=== PATIENT | male | born 1950 | race Asian ===

== ENCOUNTER 2019-04-27 19:39 | Inpatient (IN) ==
[2019-04-27] MEDS ORDERED: SODIUM CHLORIDE 0.9% 1,000 ML IV STA (19:54)
[2019-04-27 20:51] LABS: Basophils # 0.1 10*3/uL (0.0-0.2); Eosinophils % 0.3 % (0.00-10.9); Hematocrit 41.4 VOL% (42.0-52.0); Hemoglobin 13.6 GM/DL (14.0-18.0); Immature Granulocytes % 0.5 %; Immature Granulocytes Absolute 0.05 #; Lymphocytes % 11.2 % (21.2-54.2); Mean Corpuscular HGB Conc 32.9 GM/DL (32-36); Mean Corpuscular Volume 89.8 FL (87-102); Mean Platelet Volume 8.4 FL (9.6-12.0); Monocytes % 5.8 % (1.7-12.7); Neutrophils % 81.2 % (38.7-73.9); Platelet Count 348 T/CUMM (130-400); Red Blood Count 4.61 MC/CUMM (3.8-5.5); Red Cell Distribution Width 13.2 % (9.3-17.3); White Blood Count 9.1 T/CUMM (4-12)
[2019-04-27 21:20] LABS: Alanine Aminotransferase 11 U/L (16-61); Albumin 3.7 G/DL (3.4-5.0); Alkaline Phosphatase 120 U/L (45-117); Aspartate Amino Transferase 10 U/L (0-37); Blood Urea Nitrogen 20 MG/DL (7-18); Calcium 8.8 MG/DL (8.5-10.1); Estimated Glom Filtration Rate 99 ML/MIN; Glucose 113 MG/DL (74-106); Osmolality,Calculated 276.8 MOS/KG (273-304); Total Protein 6.9 G/DL (6.4-8.3)
[2019-04-27 22:07] LABS: Apearance,Urine Slightly Hazy (Clear); Bilirubin,Urine Negative (Negative); Blood, Urine Moderate mg/dL (Negative); Glucose,Urine (UA) Negative (Negative); Hyaline Casts,Urine 3 /LPF (0-3); Ketones,Urine 5 mg/dL (Negative); Mucus,Urine Few /LPF (Occasional); Nitrite,Urine Negative (Negative); Protein,Urine Negative; RBC,Urine 27 /HPF (0-4); Sperm,Urine Occasional /HPF (Negative); Squamous Epithelial Cell,Urine Occasional /HPF (0-10); Urine Color Yellow (Yellow); Urine Specific Gravity 1.019 (1.001-1.035); Urine Urobilinogen < 2.0 EU/DL (0.2-1.0); WBC,Urine 8 /HPF (0-6)
[2019-04-27 22:11] LABS: Barbiturates Screen,Urine Negative (Negative); Benzodiazepines Screen,Urine Negative (Negative); Cannabinoid Screen,Urine Positive (Negative); Opiate Screen,Urine Negative (Negative); Phencyclidine Screen,Urine Negative (Negative)
[2019-04-27] MEDS ORDERED: cefTRIAXone 1,000 MG in SODIUM CHLORIDE 0.9% 100 ML IV STA (22:41)
[2019-04-28] MEDS ORDERED: GLUCAGON 1 MG VIAL IM PRN (02:51)
[2019-04-28] MEDS ORDERED: ONDANSETRON 4 MG/2 ML VIAL IV PRN (02:51)
[2019-04-28] MEDS ORDERED: ACETAMINOPHEN 325 MG TABLET PO PRN (02:51)
[2019-04-28] MEDS ORDERED: DEXTROSE 50% 25 GM/50 ML VIAL IV PRN (02:51)
[2019-04-28] MEDS: SODIUM CHLORIDE 0.9% 1,000 ML IV SCH ×2 (03:49→17:35)
[2019-04-28 05:23] LABS: Basophils # 0.1 10*3/uL (0.0-0.2); Basophils % 1.5 % (0.0-0.8); Eosinophils # 0.3 10*3/uL (0.0-0.87); Eosinophils % 3.5 % (0.00-10.9); Hematocrit 37.1 VOL% (42.0-52.0); Hemoglobin 12.6 GM/DL (14.0-18.0); Immature Granulocytes % 0.1 %; Immature Granulocytes Absolute 0.01 #; Lymphocytes # 1.7 10*3/uL (1.4-4.0); Lymphocytes % 23.3 % (21.2-54.2); Monocytes % 11.1 % (1.7-12.7); Neutrophils % 60.5 % (38.7-73.9); Platelet Count 344 T/CUMM (130-400); Red Blood Count 4.17 MC/CUMM (3.8-5.5); Red Cell Distribution Width 13.2 % (9.3-17.3); White Blood Count 7.1 T/CUMM (4-12)
[2019-04-28 05:50] LABS: Calcium 8.6 MG/DL (8.5-10.1); Osmolality,Calculated 276.7 MOS/KG (273-304)
[2019-04-28 05:53] LABS: Ferritin 56.6 ng/ml (26-388)
[2019-04-28 06:44] LABS: Folate 20.3 NG/ML (5.4-24.0); Vitamin B12 386 PG/ML (211-911)
[2019-04-28 07:49] LABS: Sedimentation Rate-Westergren 50 MM/HR (0-20)
[2019-04-28] MEDS: INSULIN REGULAR 100 UNIT/ML SUBCUT SCH ×4 (08:43→21:10)
[2019-04-28] MEDS: ENOXAPARIN 40 MG/0.4 ML SYRINGE SUBCUT SCH (08:45)
[2019-04-28] MEDS: predniSONE 10 MG TABLET PO SCH ×2 (08:45→18:22)
[2019-04-28] MEDS: GABAPENTIN 600 MG TABLET PO SCH ×3 (08:45→21:11)
[2019-04-28] MEDS: TAMSULOSIN 0.4 MG CAPSULE PO SCH (08:49)
[2019-04-28 09:13] LABS: Hemoglobin A1 (Alkaline) 97.3 % (96.5-98.5); Hemoglobin A2 (Alkaline) 2.7 % (1.5-3.5)
[2019-04-28] MEDS: cefTRIAXone 1,000 MG in SYRINGE 1 EACH IV SCH (21:13)
[2019-04-29] MEDS: SODIUM CHLORIDE 0.9% 1,000 ML IV SCH ×2 (05:45→21:15)
[2019-04-29 06:13] LABS: Basophils # 0.1 10*3/uL (0.0-0.2); Basophils % 0.8 % (0.0-0.8); Eosinophils # 0.1 10*3/uL (0.0-0.87); Hematocrit 36.1 VOL% (42.0-52.0); Hemoglobin 11.8 GM/DL (14.0-18.0); Immature Granulocytes % 0.3 %; Immature Granulocytes Absolute 0.02 #; Lymphocytes % 15.5 % (21.2-54.2); Mean Corpuscular HGB Conc 32.7 GM/DL (32-36); Mean Corpuscular Volume 89.6 FL (87-102); Mean Platelet Volume 9.1 FL (9.6-12.0); Monocytes % 8.5 % (1.7-12.7); Neutrophils % 73.9 % (38.7-73.9); Platelet Count 331 T/CUMM (130-400); Red Blood Count 4.03 MC/CUMM (3.8-5.5); Red Cell Distribution Width 13.2 % (9.3-17.3); White Blood Count 6.1 T/CUMM (4-12)
[2019-04-29 06:44] LABS: Calcium 8.2 MG/DL (8.5-10.1); Osmolality,Calculated 280.1 MOS/KG (273-304)
[2019-04-29] MEDS: INSULIN REGULAR 100 UNIT/ML SUBCUT SCH ×4 (08:22→21:08)
[2019-04-29] MEDS: GABAPENTIN 600 MG TABLET PO SCH ×3 (08:51→21:07)
[2019-04-29] MEDS: ENOXAPARIN 40 MG/0.4 ML SYRINGE SUBCUT SCH (08:51)
[2019-04-29] MEDS: predniSONE 10 MG TABLET PO SCH ×2 (08:51→17:58)
[2019-04-29] MEDS: TAMSULOSIN 0.4 MG CAPSULE PO SCH (08:51)
[2019-04-29] MEDS: oxyCODONE/ACETAMINOPHEN 5-325 MG TABLET PO PRN (17:58)
[2019-04-29] MEDS: cefTRIAXone 1,000 MG in SYRINGE 1 EACH IV SCH (21:14)
[2019-04-30 05:42] LABS: Basophils # 0.1 10*3/uL (0.0-0.2); Basophils % 0.8 % (0.0-0.8); Eosinophils # 0.1 10*3/uL (0.0-0.87); Hemoglobin 11.8 GM/DL (14.0-18.0); Immature Granulocytes % 0.4 %; Immature Granulocytes Absolute 0.03 #; Lymphocytes # 1.6 10*3/uL (1.4-4.0); Lymphocytes % 22.5 % (21.2-54.2); Mean Corpuscular HGB Conc 32.8 GM/DL (32-36); Mean Corpuscular Volume 89.6 FL (87-102); Mean Platelet Volume 8.7 FL (9.6-12.0); Monocytes % 8.4 % (1.7-12.7); Neutrophils % 66.9 % (38.7-73.9); Platelet Count 326 T/CUMM (130-400); Red Blood Count 4.02 MC/CUMM (3.8-5.5); Red Cell Distribution Width 13.1 % (9.3-17.3); White Blood Count 7.2 T/CUMM (4-12)
[2019-04-30 05:46] LABS: Calcium 8.3 MG/DL (8.5-10.1); Osmolality,Calculated 281.1 MOS/KG (273-304)
[2019-04-30] MEDS: INSULIN REGULAR 100 UNIT/ML SUBCUT SCH ×3 (08:47→18:08)
[2019-04-30] MEDS: GABAPENTIN 600 MG TABLET PO SCH ×2 (09:05→15:52)
[2019-04-30] MEDS: TAMSULOSIN 0.4 MG CAPSULE PO SCH (09:05)
[2019-04-30] MEDS: ENOXAPARIN 40 MG/0.4 ML SYRINGE SUBCUT SCH (09:05)
[2019-04-30] MEDS: predniSONE 10 MG TABLET PO SCH ×2 (09:05→18:08)
[2019-04-30] MEDS: SODIUM CHLORIDE 0.9% 1,000 ML IV SCH (09:33)
[2019-04-30] MEDS: oxyCODONE/ACETAMINOPHEN 5-325 MG TABLET PO PRN (09:47)
[2019-04-30 16:42] VITALS: BP 120/86
== END 2019-04-30 17:58 | disposition home health service (06) | DRG 74 ==
LOC: N.ED 19:39 → N.EDINP 04-28 00:21 → N.4E 04-28 00:59
PROVIDERS: ADMIT Internal Medicine; ATTEND Internal Medicine

== ENCOUNTER 2020-07-25 11:57 | Inpatient (IN) ==
[2020-07-25] MEDS ORDERED: SODIUM CHLORIDE 0.9% 1,000 ML IV STA (12:56)
[2020-07-25] MEDS ORDERED: ONDANSETRON 4 MG/2 ML VIAL IV STA (12:56)
[2020-07-25 13:04] LABS: Basophils # 0.1 10*3/uL (0.0-0.2); Basophils % 1.2 % (0.0-0.8); Eosinophils # 0.2 10*3/uL (0.0-0.87); Eosinophils % 1.4 % (0.00-10.9); Hematocrit 42.3 VOL% (42.0-52.0); Hemoglobin 14.1 GM/DL (14.0-18.0); Immature Granulocytes % 0.7 %; Immature Granulocytes Absolute 0.08 #; Lymphocytes # 2.2 10*3/uL (1.4-4.0); Mean Corpuscular HGB Conc 33.3 GM/DL (32-36); Mean Corpuscular Volume 88.7 FL (87-102); Mean Platelet Volume 8.6 FL (9.6-12.0); Monocytes % 12.3 % (1.7-12.7); Neutrophils % 64.4 % (38.7-73.9); Platelet Count 407 T/CUMM (130-400); Red Blood Count 4.77 MC/CUMM (3.8-5.5); Red Cell Distribution Width 13.2 % (9.3-17.3)
[2020-07-25 13:27] LABS: Alanine Aminotransferase < 9 U/L (16-61); Albumin 3.6 G/DL (3.4-5.0); Alkaline Phosphatase 104 U/L (45-117); Aspartate Amino Transferase 10 U/L (0-37); Blood Urea Nitrogen 15 MG/DL (7-18); Calcium 9.6 MG/DL (8.5-10.1); Carbon Dioxide 16 MMOL/L (21-32); Estimated Glom Filtration Rate 107 ML/MIN; Glucose 83 MG/DL (74-106); Osmolality,Calculated 267.2 MOS/KG (273-304); Potassium 3.4 MMOL/L (3.5-5.1); Sodium 134 MMOL/L (136-145)
[2020-07-25 15:03] LABS: Bilirubin,Urine Negative (Negative); Blood, Urine Moderate mg/dL (Negative); Glucose,Urine (UA) Negative (Negative); Ketones,Urine 20 mg/dL (Negative); Mucus,Urine Moderate /LPF (Occasional); Nitrite,Urine Negative (Negative); Protein,Urine Negative; RBC,Urine 8 /HPF (0-4); Squamous Epithelial Cell,Urine Occasional /HPF (0-10); Urine Appearance CLEAR (Clear); Urine Color Yellow (Yellow); Urine Urobilinogen < 2.0 EU/DL (0.2-1.0); WBC,Urine 1 /HPF (0-6)
[2020-07-25] MEDS ORDERED: SODIUM CHLORIDE 0.9% 2,050 ML IV ONE (15:05)
[2020-07-25] MEDS ORDERED: SODIUM CHLORIDE 0.9% 100 ML IV ONE (15:12)
[2020-07-25] MEDS ORDERED: PIPERACILLIN/TAZOBACTAM 3,375 MG VIAL IV ONE (15:12)
[2020-07-25] MEDS ORDERED: PIPERACILLIN/TAZOBACTAM 3,375 MG in SODIUM CHLORIDE 0.9% 100 ML IV SCH (15:30)
[2020-07-25] MEDS ORDERED: GLUCAGON 1 MG VIAL IM PRN (16:08)
[2020-07-25] MEDS ORDERED: ONDANSETRON 4 MG/2 ML VIAL IV PRN (16:08)
[2020-07-25] MEDS ORDERED: hydrALAZINE 20 MG/1 ML VIAL IV PRN (16:19)
[2020-07-25] MEDS: INSULIN REGULAR 100 UNIT/ML SUBCUT SCH (17:20)
[2020-07-25] MEDS: ENOXAPARIN 40 MG/0.4 ML SYRINGE SUBCUT SCH (17:24)
[2020-07-25] MEDS: SODIUM CHLORIDE 0.9% 1,000 ML IV SCH (17:25)
[2020-07-25] MEDS ORDERED: VANCOMYCIN INJ 1,000 MG in SODIUM CHLORIDE 0.9% 250 ML IV SCH (20:00)
[2020-07-25 23:03] LABS: Calcium 7.9 MG/DL (8.5-10.1); Osmolality,Calculated 271.7 MOS/KG (273-304); Potassium 3.3 MMOL/L (3.5-5.1)
[2020-07-25] MEDS: PANTOPRAZOLE 40 MG VIAL IV SCH (23:20)
[2020-07-26] MEDS: SODIUM CHLORIDE 0.9% 1,000 ML IV SCH (02:13)
[2020-07-26] MEDS: INSULIN REGULAR 100 UNIT/ML SUBCUT SCH ×4 (02:13→17:41)
[2020-07-26] MEDS: DEXTROSE 50% 25 GM/50 ML VIAL IV PRN ×2 (02:34→07:12)
[2020-07-26 06:48] LABS: Basophils # 0.1 10*3/uL (0.0-0.2); Basophils % 1.3 % (0.0-0.8); Eosinophils # 0.3 10*3/uL (0.0-0.87); Eosinophils % 3.6 % (0.00-10.9); Hematocrit 32.3 VOL% (42.0-52.0); Immature Granulocytes % 0.6 %; Immature Granulocytes Absolute 0.04 #; Lymphocytes # 1.5 10*3/uL (1.4-4.0); Lymphocytes % 21.1 % (21.2-54.2); Mean Corpuscular HGB Conc 33.4 GM/DL (32-36); Mean Corpuscular Volume 90.5 FL (87-102); Mean Platelet Volume 8.7 FL (9.6-12.0); Monocytes % 12.1 % (1.7-12.7); Neutrophils % 61.3 % (38.7-73.9); Platelet Count 349 T/CUMM (130-400); Red Cell Distribution Width 13.2 % (9.3-17.3)
[2020-07-26 06:52] LABS: Alanine Aminotransferase < 6 U/L (16-61); Albumin 2.8 G/DL (3.4-5.0); Alkaline Phosphatase 83 U/L (45-117); Aspartate Amino Transferase 8 U/L (0-37); Blood Urea Nitrogen 9 MG/DL (7-18); Calcium 8.2 MG/DL (8.5-10.1); Carbon Dioxide 21 MMOL/L (21-32); Estimated Glom Filtration Rate 115 ML/MIN; Glucose 58 MG/DL (74-106); HDL Cholesterol 28 MG/DL (40-60); Osmolality,Calculated 275.4 MOS/KG (273-304); Risk Ratio 4.54; Sodium 140 MMOL/L (136-145); Triglycerides 92 MG/DL (2-150); VLDL CHOLESTEROL 18.4 MG/DL
[2020-07-26 06:55] LABS: Hemoglobin 10.8 GM/DL (14.0-18.0); Red Blood Count 3.57 MC/CUMM (3.8-5.5)
[2020-07-26] MEDS: DEXTROSE 5% NACL 0.9% 1,000 ML IV SCH ×2 (07:06→20:41)
[2020-07-26] MEDS: PANTOPRAZOLE 40 MG VIAL IV SCH ×2 (08:19→20:36)
[2020-07-26] MEDS: predniSONE 10 MG TABLET PO SCH ×2 (08:21→20:37)
[2020-07-26] MEDS: metFORMIN 500 MG TABLET PO SCH ×2 (08:21→20:36)
[2020-07-26] MEDS: GABAPENTIN 600 MG TABLET PO SCH ×3 (08:21→20:37)
[2020-07-26] MEDS ORDERED: POTASSIUM CHLORIDE RIDER 10 MEQ in PREMIX 1 EACH IV PRN (10:35)
[2020-07-26] MEDS ORDERED: MAGNESIUM SULF RIDER 2 GM in PREMIX 1 EACH IV PRN (10:36)
[2020-07-26] MEDS ORDERED: MAGNESIUM SULF RIDER 4 GM in PREMIX 1 EACH IV PRN (10:36)
[2020-07-26] MEDS ORDERED: POTASSIUM CHLORIDE INJ 50 MEQ, MAGNESIUM SULF INJ 2 GM in SODIUM CHLORIDE 0.9% 500 ML IV ONE (12:00)
[2020-07-26] MEDS: chlorproMAZINE 25 MG TABLET PO PRN (15:49)
[2020-07-26] MEDS: ENOXAPARIN 40 MG/0.4 ML SYRINGE SUBCUT SCH (20:37)
[2020-07-27 00:58] LABS: Alanine Aminotransferase < 6 U/L (16-61); Albumin 2.7 G/DL (3.4-5.0); Alkaline Phosphatase 83 U/L (45-117); Aspartate Amino Transferase 8 U/L (0-37); Blood Urea Nitrogen 4 MG/DL (7-18); Calcium 7.9 MG/DL (8.5-10.1); Carbon Dioxide 20 MMOL/L (21-32); Estimated Glom Filtration Rate 124 ML/MIN; Glucose 112 MG/DL (74-106); Osmolality,Calculated 272.7 MOS/KG (273-304); Potassium 3.5 MMOL/L (3.5-5.1); Sodium 138 MMOL/L (136-145); Total Protein 6.1 G/DL (5.0-7.5)
[2020-07-27] MEDS: INSULIN REGULAR 100 UNIT/ML SUBCUT SCH ×3 (03:01→11:58)
[2020-07-27] MEDS: chlorproMAZINE 25 MG TABLET PO PRN (05:44)
[2020-07-27] MEDS: PANTOPRAZOLE 40 MG VIAL IV SCH (09:28)
[2020-07-27] MEDS: metFORMIN 500 MG TABLET PO SCH (09:28)
[2020-07-27] MEDS: predniSONE 10 MG TABLET PO SCH (09:29)
[2020-07-27] MEDS: GABAPENTIN 600 MG TABLET PO SCH ×2 (09:29→15:04)
[2020-07-27] MEDS: DEXTROSE 5% NACL 0.9% 1,000 ML IV SCH (09:35)
[2020-07-27 15:49] VITALS: BP 129/73
== END 2020-07-27 17:29 | disposition home or self-care (01) | DRG 391 ==
LOC: N.ED 11:57 → N.EDINP 16:16 → N.5E 16:55
PROVIDERS: ADMIT Internal Medicine; ATTEND Internal Medicine